=== PATIENT | female | born 1945 | race Caucasian/White ===

== ENCOUNTER 2016-09-09 09:58 | Outpatient (CLI) | payer MEDICARE, OTHER | END 2016-09-09 10:00 | LOC: POD 09:58 | PROVIDERS: ATTEND Podiatrist Public Medicine | DX: B35.1 Tinea unguium (principal); L60.0 Ingrowing nail; M79.674 Pain in right toe(s); M79.675 Pain in left toe(s) | CPT/HCPCS: 11721; G0463 ==

== ENCOUNTER 2016-12-23 10:23 | Outpatient (CLI) | payer MEDICARE, OTHER | END 2016-12-23 10:24 | LOC: POD 10:23 | PROVIDERS: ATTEND Podiatrist Public Medicine | DX: B35.1 Tinea unguium (principal); L60.0 Ingrowing nail; M79.674 Pain in right toe(s); M79.675 Pain in left toe(s) | CPT/HCPCS: 11721; G0463 ==

== ENCOUNTER → 2017-03-18 | Outpatient (CLI) | payer MEDICARE, OTHER ==
--- NOTE | 2017-03-18 18:51 | Diagnostic Imaging Report ---
ANGELICA BENTON [facility] [id number] [facility].[address] [id number] Report Submission Date: Mar 18, 2017 4:35:13 PM CDT Patient Study Name: TRINA WATSON Date: Mar 18, 2017 4:11:49 PM CDT Modality Type: CR Gender: F Description: CHEST : 41 Institution: [facility] Physician: ANGELICA BENTON Pa and lateral chest Clinical history :short of breath dyspnea on exertion Comparison: May 01, 2016 has no previous images available for comparison Technique pa and lateral upright Findings: The lung cobb are clear. I see no hilar or mediastinal mass. There is no pleural effusion. There is a dextroscoliosis in the thoracic spine. Thoracic spondylosis is present. Cardiomegaly is present. Impression: No acute pulmonary disease Cardiomegaly Dextroscoliosis and mild thoracic spondylosis changes Electronically signed on Mar 18, 2017 4:35:13 PM CDT by: Maciej CARRENO
== END ==
LOC: RAD 16:06
PROVIDERS: ATTEND Family Medicine
DX: R06.02 Shortness of breath (principal)
CPT/HCPCS: 71020

== ENCOUNTER 2017-03-24 10:14 | Outpatient (CLI) | payer MEDICARE, OTHER | END 2017-03-24 10:15 | LOC: POD 10:14 | PROVIDERS: ATTEND Podiatrist Public Medicine | DX: L60.0 Ingrowing nail (principal); B35.1 Tinea unguium; M79.675 Pain in left toe(s); M79.674 Pain in right toe(s) | CPT/HCPCS: 11721; G0463 ==

== ENCOUNTER 2017-06-23 10:44 | Outpatient (CLI) | payer MEDICARE, OTHER | END 2017-06-23 10:45 | LOC: POD 10:44 | PROVIDERS: ATTEND Podiatrist Public Medicine | DX: B35.1 Tinea unguium (principal); L60.0 Ingrowing nail; M79.674 Pain in right toe(s); M79.675 Pain in left toe(s) | CPT/HCPCS: 11721; G0463 ==

== ENCOUNTER 2017-09-29 10:09 | Outpatient (CLI) | payer MEDICARE, OTHER | END 2017-09-29 10:10 | LOC: POD 10:09 | PROVIDERS: ATTEND Podiatrist Public Medicine | DX: B35.1 Tinea unguium (principal); L60.0 Ingrowing nail; M79.674 Pain in right toe(s); M79.675 Pain in left toe(s) | CPT/HCPCS: 11721; G0463 ==

== ENCOUNTER 2017-12-29 10:42 | Outpatient (CLI) | payer MEDICARE, OTHER | END 2017-12-29 10:44 | LOC: POD 10:42 | PROVIDERS: ATTEND Podiatrist Public Medicine | DX: B35.1 Tinea unguium (principal); L60.0 Ingrowing nail; M79.674 Pain in right toe(s); M79.675 Pain in left toe(s) | CPT/HCPCS: 11721; G0463 ==